=== PATIENT | male | born 1960 | race Caucasian/White ===

== ENCOUNTER 2022-03-27 11:47 | Outpatient (CLI) | payer OTHER, SELFPAY ==
--- NOTE | ~2022-03-27 | XR_ITS ---
XR thoracic spine 3V DATE: 03/27/2022 12:09 INDICATION: Back pain. Neck pain. TECHNIQUE: AP, lateral, swimmer views COMPARISON: None FINDINGS: There is moderate degenerative disc disease at C4-5, C5-6 and C6-7. No fracture or dislocation of the thoracic spine. The thoracic pedicles are intact. No bone destructi on is noted. There is mild to moderate degenerative spurring of the thoracic spine. No paraspinal soft tissue thic kening. IMPRESSION: Degenerative changes of the cervical and thoracic spine Reviewed, dictated and finalized at location B. [facility]
--- NOTE | ~2022-03-27 | XR_ITS ---
XR_CERV2-3V_CR DATE: 03/27/2022 12:09 INDICATION: Neck pain. Cervical spondylosis. TECHNIQUE: Open-mouth, odontoid, AP and lateral views COMPARISON: None FINDINGS: There is straightening of the cervical spine which may be due to muscle spasm. C1 and C2 are normally aligned and the odontoid process is intact. No fracture or dislocation or lock ed facet or prevertebral soft tissue swelling is detected. Cervical interspaces are well preserved. There is bridging osteophyte anteriorly at C4-5 and anterior spurring at C5-6. Mild anterior and more prominent posterior spurring is suggested at C6-7. IMPRESSION: Straightening of the cervical spine which may be due to muscle spasm Mild spondylosis Reviewed, dictated and finalized at Location A. Reviewed, dictated and finalized at location B. [facility] FOLLOWER IMPRESSION: Straightening of the cervical spine which may be due to muscle spas m Mild spondylosis
== END 2022-03-27 11:48 | disposition home or self-care (01) ==
LOC: ANHASCIMG 11:51
PROVIDERS: PCP Emergency Medicine; Visit Provider Emergency Medicine
DX: M47.892 Other spondylosis, cervical region (principal); M50.30 Other cervical disc degeneration, unspecified cervical region; M51.34 Other intervertebral disc degeneration, thoracic region
CPT/HCPCS: 72040; 72072

== ENCOUNTER 2022-04-28 09:55 | Emergency (ER) | payer OTHER, SELFPAY ==
--- NOTE | ~2022-04-28 | XR_ITS ---
EXAMINATION: XR chest 2V 04/28/2022 13:30 INDICATION: Chest palpitations PROCEDURE: 2 view chest COMPARISON: 10/16/2018 FINDINGS: The lungs are clear. The cardiomediastinal silhouette is within normal limits. There are no pleural effusions. There is no pneumothorax suspected. IMPRESSION: 1: NO ACUTE CARDIOPULMONARY DISEASE. Reviewed, dictated and finalized at location A. [facility]
--- NOTE | 2022-04-28 10:00 | ECG_ITS ---
Measurements Intervals [place] Rate: 109 P: 40 [place]: 173 QRS: 15 QRSD: 89 T: 65 QT: 308 QTc: 416 Interpretive Statements SINUS TACHYCARDIA NONSPECIFIC ST ABNORMALITY BORDERLINE ECG COMPARED TO ECG 10/16/2018 17:17:25 NO SIGNIFICANT CHANGES Electronically Signed On 04-28-2022 14:54:08 INTERNET ARCHITECT by Lizandro Tolliver M.D.
[2022-04-28 10:12] LABS: Basophils Absolute Auto 0.1 K/mm3 (0.0-0.1); Basophils Percent Auto 1.1 % (0.2-1.2); Eosinophils Absolute Auto 0.7 K/mm3 (0-0.3); Eosinophils Percent Auto 7.3 % (0-4.4); Hematocrit 48.4 % (42.0-52.0); Hemoglobin 16.8 g/dL (14.0-18.0); Immature Granulocyte Absolute 0.04 K/mm3 (0.00-0.031); Immature Granulocyte Percent A 0.4 % (0-0.5); Lymphocytes Percent Auto 26.2 % (18.3-44.2); Mean Corpuscular HGB Conc 34.7 g/dl (32-36); Mean Corpuscular Hemoglobin 29.2 pg (26-34); Mean Corpuscular Volume 84.2 fl (80-100); Mean Platelet Volume 8.8 fl (7.4-10.4); Monocytes Absolute Auto 0.7 K/mm3 (0.1-0.6); Neutrophils Absolute Auto 5.2 K/mm3 (1.3-6.7); Platelet Count Result 330 k/mm3 (150-375); Red Blood Count 5.75 M/mm3 (4.6-6.20); Red Cell Distribution Width 12.6 % (11.5-14.5); White Blood Count 9.2 K/mm3 (4.5-10.0)
[2022-04-28 10:23] LABS: Alanine Aminotransferase 20 U/L (6-50); Albumin Level 4.7 g/dL (3.5-5.1); Alkaline Phosphatase 86 U/L (38-126); Anion Gap 7 mmol/L (8-16); Aspartate Amino Transferase 27 U/L (17-59); Bilirubin,Total 0.7 mg/dL (0.2-1.3); Blood Urea Nitrogen 16 mg/dL (9-20); Calcium 9.2 mg/dL (8.4-10.2); Carbon Dioxide 29 mmol/L (22-30); Chloride 98 mmol/L (98-107); Estimated Glomerular Filt Rate > 60; Glucose 124 mg/dL (65-110); Potassium 3.7 mmol/L (3.4-5.0); Sodium 134 mmol/L (137-145)
[2022-04-28 10:24] VITALS: BP 111/61; PULSE 102; RESP 15; TEMP 36.8; O2SAT 100
[2022-04-28] MEDS: SODIUM CHLORIDE 0.9% IV 1,000 ML 999 ML IV CONT (13:11)
[2022-04-28 13:13] VITALS: BP 116/78; PULSE 86; RESP 16; O2SAT 99
--- NOTE | 2022-04-28 13:35 | ED.WEAKNESS ---
HPI - Weakness General Chief complaint: Weakness Stated complaint: generalized weakness, leg numbess Time Seen by Provider: 04/28/22 12:41 History of Present Illness HPI Narrative: Patient is a 62-year-old male who presents ER with weakness. Reports for the last week he has had a GI bug causing have some nausea vomiting diarrhea. He has felt weak and fatigued today. [place] like his heart was racing earlier and has had some chest discomfort on the left side for the last week as well. No history of heart disease. Does have history of anxiety. Has had poor appetite over the last week. No loss consciousness. Related Data Home Medications Medication Instructions Recorded Confirmed amlodipine 10 mg tablet mg 04/28/22 Allergies Allergy/AdvReac Type Severity Reaction Status Date / Time No Known Allergies Allergy Unknown Verified 04/28/22 13:16 Review of Systems Review of Systems: All systems reviewed & are unremarkable except as noted in HPI and below Constitutional: Constitutional: Denies chills, Reports fatigue and Denies fever(s) Cardiovascular: Cardiovascular: Reports chest pain, Reports rapid heart rate and Denies radiating jaw, neck or arm pain Respiratory: Respiratory: Denies cough, Denies dyspnea and Denies wheezing Gastrointestinal: Gastrointestinal: Denies abdominal pain, Reports diarrhea, Reports nausea and Reports vomiting PMFSH Past Medical History Medical History (Updated 04/28/22 @ 14:38 by Clifton Linda MD) Anxiety Hypertension Surgical History Surgical History (Updated 04/28/22 @ 13:40 by Clifton Linda MD) H/O inguinal hernia repair History of appendectomy Social History Social History (Updated 04/28/22 @ 13:40 by Clifton Linda MD) Smoking status: Never smoker Exam Narrative: GENERAL: Well-appearing, well-nourished, and in no acute distress. HEAD: Normocephalic, atraumatic. NECK: Supple. CHEST: Clear to auscultation. No respiratory distress. HEART: Regular rate and rhythm. Normal peripheral pulses. ABDOMEN: Soft, nontender, nondistended. EXTREMITIES: Normal range of motion. No edema. SKIN: Warm, dry, no rash. NEURO: No focal deficits. Alert and oriented x3. PSYCH: Normal mood and affect. Course Course Emergency Course: Discussed diagnosis and treatment plan with patient and his . Labs unremarkable EKG reassuring. Heart score 3. Vital Signs Vital signs: Vital Signs Temperature 98.2 F 04/28/22 10:24 Pulse Rate 102 H 04/28/22 10:24 Respiratory Rate 15 04/28/22 10:24 Blood Pressure 111/61 04/28/22 10:24 Pulse Oximetry 100 04/28/22 10:24 Oxygen Delivery Room Air 04/28/22 10:24 Temperature 98.2 F 04/28/22 10:24 Pulse Rate 90 04/28/22 15:21 Respiratory Rate 20 04/28/22 15:21 Blood Pressure 114/74 04/28/22 15:21 Pulse Oximetry 100 04/28/22 15:21 Oxygen Delivery Room Air 04/28/22 10:24 MDM - Weakness Lab Data 04/28/22 10:06 04/28/22 10:06 Labs: Lab Results 04/28/22 04/28/22 04/28/22 Range/Units 10:06 10:06 13:09 WBC 9.2 (4.5-10.0) K/mm3 RBC 5.75 (4.6-6.20) M/mm3 Hgb 16.8 (14.0-18.0) g/dL Hct 48.4 (42.0-52.0) % MCV 84.2 (80-100) fl MCH 29.2 (26-34) pg MCHC 34.7 (32-36) g/dl RDW 12.6 (11.5-14.5) % Plt Count 330 (150-375) k/mm3 MPV 8.8 (7.4-10.4) fl Immature Gran % (Auto) 0.4 (0-0.5) % Neut % (Auto) 57.0 (45.5-73.1) % Lymph % (Auto) 26.2 (18.3-44.2) % [place] % (Auto) 8.0 (2.6-8.5) % Eos % (Auto) 7.3 H (0-4.4) % Baso % (Auto) 1.1 (0.2-1.2) % Lymph # (Auto) 2.40 (0.9-3.2) K/mm3 [place] # (Auto) 0.7 H (0.1-0.6) K/mm3 Eos # (Auto) 0.7 H (0-0.3) K/mm3 Baso # (Auto) 0.1 (0.0-0.1) K/mm3 Abs Immat Gran (auto) 0.04 H (0.00-0.031) K/mm3 Absolute Neuts (auto) 5.2 (1.3-6.7) K/mm3 Absolute Nucleated RBC 0.0 (0.0-0.012) K/mm3 Nucleated RBC % 0.0 (0.0-0.2) % Indraiu
[2022-04-28 13:39] LABS: Troponin I < 0.012 ng/mL (0.000-0.034)
[2022-04-28 14:39] VITALS: BP 114/75; PULSE 80; RESP 18; O2SAT 98
[2022-04-28 15:21] VITALS: BP 114/74; PULSE 90; RESP 20; O2SAT 100
== END 2022-04-28 15:24 | disposition home or self-care (01) ==
PROVIDERS: Emergency Provider Emergency Medicine; PCP Emergency Medicine
DX: R00.2 Palpitations (principal); I10 Essential (primary) hypertension; R00.0 Tachycardia, unspecified; R94.31 Abnormal electrocardiogram [ECG] [EKG]
CPT/HCPCS: 36415; 71046; 80053; 84484; 85025; 93005; 96360; 99284; J7030

== ENCOUNTER 2024-04-14 01:59 | Day surgery (SDC) | payer OTHER, SELFPAY ==
[2024-04-01 14:22] VITALS: BMI 31.4
--- NOTE | 2024-04-01 14:32 | SUR.PREOP ---
Report to the Outpatient Waiting Room, entrance under the green pavilion located off [facility], at time 10:30a.m. on date 04/14/2024. Planned Procedure Time: 12:30p.m.? Time changes happen often and if your time is changed the preop area will call you the afternoon before. - You and your visitor will be asked to self-screen and do not enter if you have any COVID symptoms. Please call surgeon if you need to reschedule. - A mask is optional within the hospital at this time. Patients may have clear liquids (water, carbonated beverages, clear teas, apple juice) until 3 hours prior to surgery with a maximum of 20 ounces. - No food from midnight until time of surgery and no smoking. This includes no chewing gum, candy or mints. - Infants may have breast milk until 4 hours before surgery, infant formula 6 hours prior to surgery. - Children will be allowed to drink immediately following surgery.? If applicable, please bring a bottle or sippy cup to assist with drinking. Juice, water, soda, and popsicles are readily available.? For infants on formula, please bring formula the day of surgery.? Pacifiers are allowed. Take only the following medications with a SIP of water on the morning of surgery: amlodipine DO NOT STOP ANY OF YOUR OTHER PRESCRIPTION MEDICATIONS PRIOR TO SURGERY EXCEPT THE FOLLOWING Medications to discontinue per physician N/A Date to take last dose N/A Please no make-up, nail citizen of [place], hairspray, perfume, deodorant, or body powder the day of surgery.? No jewelry (including any body piercings) or valuables the day of surgery, leave them at home.? Please take a shower or bath the night before, or the morning of, surgery with an antibacterial soap.? Wear comfortable, loose fitting clothing.? Children are encouraged to wear pajamas. - Jewelry must be removed prior to entering the operating room.? Rings and piercings that are not removed may be cut off. - The hospital will not accept responsibility for valuables.? - Please leave all valuables, including medications, at home the day of surgery. If you are going home after surgery, a licensed boat driver must drive you home.? - NO public transportation without another adult if you receive anesthesia. - We recommend that an adult stay with you for 24 hours following discharge. - We also recommend that you do not drive, make important decision, drink alcoholic beverages, or take any drugs that were not prescribed by your health care provider for at least 24 hours after your discharge time. For Pediatric surgeries, we recommend two adults accompany the child home. Follow any additional instructions given to you from your surgeon. Telephone instructions given to Dk De Jesus and asked if any additional questions and then verbalized understanding. Patient advised to call surgeon office or pre surgery nurse liaison [phone] if any additional questions.
--- OUTSIDE RECORDS SUMMARY | 2024-04-14 02:02 | XMS_ITS | Referral Summary ---
Author Organization [facility] [place] [address] Address [address] [place] [id number] Care Team Providers Care Senior Engineering Team Leader Name Role Phone Vicente Zhang MD Primary Care Provider [phone] Allergies No known active allergies Medications irbesartan (AVAPRO) 300 mg tablet Take 1 tablet (300 mg total) by mouth nightly Active irbesartan-hydr oCHLOROthiazide (AVALIDE) 300-12.5 mg per tablet Take 1 tablet by mouth daily 10/26/2020 Active Active Problems Problem Noted Date Diagnosed Date Blood in urine 02/24/2014 Essential hypertension 12/12/2011 Gastroesophageal reflux disease 12/12/2011 Generalized anxiety disorder 12/12/2011 Social History Tobacco Use Types Packs/Day Years Used Date Smoking Tobacco: Never Personal Safety Answer Date Recorded Getting School Help Needed Not on file 05/02 Sex and Gender Information Value Date Recorded Sex Assigned at Not on file 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 Gender Identity Not on file Sexual Orientation Not on file Last Filed Vital Signs Vital Sign Reading Time Taken Comments Blood Pressure 116/68 10/01/2023 6:41 PM CDT Pulse 81 10/01/2023 6:41 PM CDT Temperature 36.8 ??C (98.3 ??F) 10/01/2023 6:41 PM CD T Respiratory Rate 20 10/01/2023 6:41 PM CDT Oxygen Saturation 98% 10/01/2023 6:41 PM CDT Inhaled Oxygen Concentration - - Weight 102.1 kg (225 lb) 10/01/2023 6:41 PM CDT Height 185.4 cm (6' 1 ) 10/01/2023 6:41 PM CDT Body Mass Index 29.69 10/01/2023 6:41 PM CDT Plan of Treatment Not on file Insurance [facility] CMR Care Teams Senior Engineering Team Leader Relationship Specialty Start Date End Date Vicente Zhang MD PCP - General Family Medicine 01/03/21
--- OUTSIDE RECORDS SUMMARY | 2024-04-14 02:02 | XMS_ITS | Continuity of Care Document ---
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 Role Phone Vicente Zhang MD Unavailable Unavailable Allergies, Adverse Reactions, Alerts Substance Reaction Status Criticality No Known Allergies Active No Inform ation Medications Medication Instructions Dosage Effective Dates (start - stop) Status Comments Norvasc 10 mg tablet take 1 tablet by oral route every day 10 MG - Active irbesartan 300 mg-hydrochlorothi azide 12.5 mg tablet take 1 tablet by oral route every day 1.00 tablet - Active sildenafil 50 mg tablet take 1 tablet by oral route every day as directe as needed 50 MG - Active take one orally about one hour before activity ,max 1/24 hours Procedures Procedure Date OFFICE/OUTPATIENT VISIT, EST PREV VISIT, EST, AGE 40-64 OFFICE/OUTPATIENT VISIT, EST OFFICE/OUTPATIENT VISIT, EST OFFICE/OUTPATIENT VISIT, EST OFFICE/OUTPATIENT VISIT, EST OFFICE/OUTPATIENT VISIT, EST PREV VISIT, EST, AGE 40-64 OFFICE/OUTPATIENT VISIT, EST OFFICE/OUTPATIENT VISIT, EST OFFICE/OUTPATIENT VISIT, EST PREV VISIT, EST, AGE 40-64 OFFICE/OUTPATIENT VISIT, EST OFFICE/OUTPATIENT VISIT, EST OFFICE/OUTPATIENT VISIT, EST PREV VISIT, EST, AGE 40-64 OFFICE/OUTPATIENT VISIT, EST PREV VISIT, EST, AGE 40-64 OFFICE/OUTPATIENT VISIT, EST PREV VISIT, EST, AGE 40-64 OFFICE/OUTPATIENT VISIT, EST PREV VISIT, EST, AGE 40-64 OFFICE/OUTPATIENT VISIT, EST OFFICE/OUTPATIENT VISIT, EST OFFICE/OUTPATIENT VISIT, EST PREV VISIT, EST, AGE 40-64 OFFICE/OUTPATIENT VISIT, EST Advance Directives Directive Yes / No Effective Date File Name No Information Encounters Encounter Description Practice Location Reason(s) For Visit Diagnoses Date Provider Providers Copied on Encounter OFFICE/OUTPA TIENT VISIT, EST [facility], [address] [place], [address], tel:[phone] [facility] HTN (chief complaint)glu cose1 (chief complaint)HLP (chief complaint)ED (chief complaint)ski n (chief complaint) Essential (primary) hypertensionMixe d hyperlipidemiaHy perglycemiaFamil y history of ischemic cardiac diseaseEpidermal cystMale erectile dysfunction, unspecified 4 Vicente Lindsay [address] [facility] [place], [address] , [place]. tel:[phone] PREV VISIT, EST, AGE 40-64 [facility], [address] [place], [address], [place] tel:[phone] [facility] physical (chief complaint) Encounter for general adult medical exam w abnormal findingsEssentia l (primary) hypertensionMixe d hyperlipidemiaHy perglycemiaAcute bronchitis 4 Vicente Lindsay [address] [place], [address] , [place]. tel:[phone] OFFICE/OUTPA TIENT VISIT, EST [facility], [address] [place], [address], [place] tel:[phone] [facility] HTN (chief complaint)COV ID1 (chief complaint)anx iety1 (chief complaint) Essential (primary) hypertensionGene ralized Anxiety DisorderViral infectionMale erectile dysfunction, unspecified 3 Vicente Zhang. [address], [place], [place], [address] , [place]. tel:[phone] OFFICE/OUTPA TIENT VISIT, EST [facility], [address], [place], [place], [address], [place] tel:[phone] [facility] back pain1 (chief complaint) Muscle spasm of backOther spondylosis, cervical region 3 Vicente Zhang. [address], [place], [place], [address] , [place]. tel:[phone] OFFICE/OUTPA TIENT VISIT, [facility], [address], [place], [place], [address], [place] tel:[phone] [facility] back pain1 (chief complaint) Muscle spasm of back 3 Vicente Zhang. [address], [place], [place], [address] , [place]. tel:[phone] OFFICE/OUTPA TIENT VISIT, [facility], [address], [place], [place], [address], [place] tel:[phone] [facility] HTN (chief complaint)HLP (chief complaint)glu cose (chief complaint)anx iety1 (chief complaint)ED (chief complaint) Essential (primary) hypertensionHype rglycemiaMixed hyperlipidemiaMa le erectile dysfunction, unspecifiedGener alized Anxiety Disorder 2 Vicente Zhang. [address], [place], [place], [address] , [place]. tel:[phone] PREV VISIT, EST, AGE 40-64 [facility], [address], [place], [place], [address], [place] tel:[phone] [facility] physical (chief complaint) Encounter for general adult medical exam w abnormal findingsEssentia l (primary) hypertension 2 Vicente Zhang. [address], [place], [place], [address] , [place]. tel:[phone] OFFICE/OUTPA TIENT VISIT, EST [facility], [address], [place], [place], [address], [place] tel:[phone] [facility] HTN (chief complaint)glu cose1 (chief complaint)col on1 (chief complaint)CAD (chief complaint) Essential (primary) hypertensionHype rglycemiaFamily history of ischemic cardiac diseaseEncounter for screening for malignant neoplasm of colonHyperlipide giovanny 1 Vicente Vicente. [address], [place], [place], [address] , [place]. tel:[phone] OFFICE/OUTPA TIENT VISIT, [facility], [address], [place], [place], [address], [place] tel:[phone] [facility] HTN (chief complaint)glu cose1 (chief complaint)col on1 (chief complaint) HyperlipidemiaEs sential (primary) hypertensionHype rglycemiaEncount er for screening for malignant neoplasm of colon 0 Vicente Vicente. [address], [place], [place], [address] , [place]. tel:[phone] PREV VISIT, EST, AGE 40-64 [facility], [address], [place], [place], [address], [place] tel:[phone] [facility] Physical (chief complaint) Encounter for general adult medical exam w abnormal findingsHyperlip idemiaTachycardi aEssential (primary) hypertension 0 Vicente Vicente. [address], [place], [place], [address] , [place]. tel:[phone] OFFICE/OUTPA TIENT VISIT, EST [facility], [address], [place], [place], [address], [place] tel:[phone] [facility] HTN (chief complaint)HLP (chief complaint)nicki kocytosis1 (chief complaint)tac hycardia1 (chief complaint) LeukocytosisEsse ntial (primary) hypertensionHype rlipidemiaTachyc ardia [address] Vicente [address], [place], [place], [address] , [place]. tel:[phone] Referring Provider: [address], [place], [place], [address]. tel:[phone] OFFICE/OUTPA TIENT VISIT, EST [facility], [address] [place], [address], [place] tel:[phone] [facility] HTN (chief complaint)diz ziness1 (chief complaint)tac hycardia (chief complaint)glu cose (chief complaint) Essential (primary) hypertensionDizz inessHyperglycem iaTachycardiaLeu kocytosisEdema 9 Vicente [address], [place], [place], [address] , [place]. [phone] Referring Provider: Favian Sher [address] [facility] [address], [place], [place], [address]. tel:[phone] PREV VISIT, EST, AGE 40-64 [facility], [facility] [address] [place], [address], [place] tel:[phone] [facility] Physical (chief complaint) Encounter for general adult medical exam w abnormal findingsEssentia l (primary) hypertension 0 [address] Vic[address], [place], [address] , [place]. [phone] Referring Provider: Favian Sher [address], [place], [place], [address]. tel:[phone] PREV VISIT, EST, AGE 40-64 [facility], [address] [place], [address], [place] tel:[phone] [facility] PHysical (chief complaint) Encounter for general adult medical exam w abnormal findingsEssentia l (primary) hypertensionEnco unter for screening for other viral diseases 7 Zhang Vicente. [address], [place], [place], [address] , [place]. [phone] Referring Provider: Favian [address], [place], [place], [address]. tel:[phone] PREV VISIT, EST, AGE 40-64 [facility], [address], [place], [address], [place] tel:[phone] [facility] PHysical (chief complaint) Encounter for general adult medical exam w abnormal findingsEssentia l (primary) hypertension 6 Vicente Zhang. [address], [place], [place], [address] , [place]. [phone] Referring Provider: Vicente Zhang, [address], [place], [place], [address]. tel:[phone] PREV VISIT, EST, AGE 40-64 [facility], [address], [place], [place], [address], [place] tel:[phone] [facility] PHysical (chief complaint) Encounter for general adult medical exam w/ abnormal findingEssential (primary) hypertensionGERD without esophagitis 5 Vicente Zhang. [address], [place], [address] , [place]. [phone] Referring Provider: Favian Sher [address], [place], [address]. tel:[phone] OFFICE/OUTPA TIENT VISIT, EST [facility], [address], [place], [address], [place] tel:[phone] [facility] GERd (chief complaint)HTN (chief complaint)pal pitaion (chief complaint)anx iety (chief complaint) Hypertension, UnspecifiedGERDH EMATURIA NOSSpecial screening for malignant neoplasms, colon 4 Vicente Zhang. [address], [place], [place], [address] , [place]. [phone] Referring Provider: Favian Sher [address], [place], [address]. tel:[phone] [facility], [address], [place], [address], [place] tel:[phone] [facility] HEMATURIA NOS 4 Vicente Zhang. [address], [place], [place], [address] , [place]. tel:[phone] Referring Provider: Vicente Zhang, [address], [place], [place], [address]. tel:[phone] OFFICE/OUTPA TIENT VISIT, EST [facility], [address], [place], [address], [place] tel:[phone] [facility] anxiety (chief complaint)pal pitation (chief complaint)EFE D (chief complaint) Dietary surveillance and counselingPalpit ationsGERDGenera lized anxiety disorderHyperten champ, Unspecified 4 Vicente Zhang. [address], [place], [address] , [place]. tel:[phone] Referring Provider: Vicente Zhang, [address], [place], [place], [address]. tel:[phone] PREV VISIT, EST, AGE 40-64 [facility], [address], [place], [address], [place] tel:[phone] [facility] Physical (chief complaint) Routine Medical ExamDietary surveillance and counselingRoutin e Medical Exam 3 Vicetne Zhang. [address], [place], [place], [address] , [place]. tel:[phone] Referring Provider: Vicente Zhang, [address], [place], [place], [address]. tel:[phone] OFFICE/OUTPA TIENT VISIT, EST [facility], [address], [place], [address], [place] tel:[phone] [facility] hypertension (follow up) (chief complaint)anx iety (chief complaint)EFE D (chief complaint) Dietary surveillance and counselingGERDHy pertension, UnspecifiedGener alized anxiety disorder 2 Vicente Zhang. [address], [place], [place], [address] , [place]. tel:[phone] Family History Family Member Type Diagnosis Age At Onset Brother Problem (finding) Hypertension Father Problem (finding) Hypertension Brother Problem (finding) Coronary artery disease Mother Problem (finding) Hypertension Payers Payer name Insurance type Covered constitution party ID Authoriza tion(s) No Information Social History Type Description Quantity Date Captured Comments Alcohol Use Details Caffeine Use Details Unknown Tobacco Use Status Never smoked tobacco 2023 Smoking Status Never smoker Sex Male Vital Signs Date / Time: Height Weight BMI Pulse Rate Blood Pressure Temperature Respiratory Rate Body Surface Area Head Circumference BMI percentile Pulse Ox Inhaled Ox 3:35 PM 74.00 in 244.20 lbs 31.3 5 kg/m eter (2) 60 /min 110/74 mm[Hg] 97.5 F 16 /min Chief Complaint And Reason For Visit From encounter dated '02/24/2024 15:34'. HTN (chief complaint). Description: Pt has HTN pt takes irbesartan/hctz and norvasc and his bp is ok Pt denies any chest pain or headache glucose1 (chief complaint). Description: Pt has mild high glucose Pt denies any polyuria, polydipsia HLP (chief complaint). Description: Pt has HLP pt also gained weight .Pt has not been diet and exercising ED (chief complaint). Description: Pt c/o ED Pt denies testicular pain or atrophy or nodule. skin (chief complaint). Description: Pt notices a growing skin cystic lesion on back of his neck for several months pt denies any pain or bleeding Plan Of Treatment Date Type Action Status Goal Special diet education compl eted Goal Special diet education compl eted Goal Special diet education compl eted Referral Referred To: Krzysztof [place] [address] [place] [address], [phone] Ordered: Referrals: Krzysztof [place]. Evaluate and treat ordered Referral Referred To: Sujit Estevez [address] [place], [phone] Ordered: Referrals: Sujit Estevez. Evaluate and treat ordered Referral Ordered: Physical Therapy (related to Muscle spasm of back) ordered Referral Ordered: CERVICAL SPINE XRAY 7 VIEWS ordered Referral Referred To: Physical Therapy Ordered: Referrals: Physical Therapy. Evaluate and treat ordered Referral Ordered: Sujit Estevez -[facility] : Internal Medicine : Cardiovascular Disease (related to Bradycardia) ordered Referral Referred To: Sujit Estevez [address] [place], [place] [phone] Ordered: Referrals: [facility] : Internal Medicine : Cardiovascular Disease. Sujit Estevez. Evaluate and treat ordered Referral Ordered: CARDIOVASCULAR STRESS TEST ordered Referral Ordered: COLONOSCOPY AND BIOPSY ordered History Of Present Illness Encounter Date Complaint History Of Prese nt Illness HLP Pt has HLP pt al so gained weight .Pt has not been diet and exercising ED Pt c/o ED Pt den ies testicular pain or atrophy or nodule. skin Pt notices a edward wing skin cystic lesion on back of his neck for several months pt denies any pain or bleeding glucose1 Pt has mild high glucose Pt denies any polyuria, polydipsia HTN Pt has HTN pt ta kes irbesartan/hctz and norvasc and his bp is ok Pt denies any chest pain or headache physical Pt needs annual physical pt has HTN Pt takes norvasc and irbesartan/hctz and his bp is ok Pt denies any chest pain or headache Pt c/o productive cough x 2 weeks Pt notices small amount of green phlegm .Pt denies any sob Pt denies any fever, chest pain, sore throat or sinus symptoms Pt denies any GI symptoms. he is uptodate with COVID, flu vaccine .Pt denies any other complaints HTN Pt has HTn< Pt t akes irbesartan/hctz and norvasc and his bp is around 130/80. Pt needs refill COVID1 Pt contracted [place] VID last week and he is vaccinated and boosted .Pt has very mild symptoms he did receive paxlovid. Pt currently feels fine anxiety1 Pt has history o f mild anxiety Pt states that he is doing better in terms of his anxiety and he is off xanax completely .He denies any depression or any suicidal or homicidal thought. Pt denies any crying spells . back pain1 Pt c/o acute ons et of pain around upper back and inferior to neck area around the center of his back for 1.5 . Pt denies any injury .Pt denies any radiculopathy. Pt feels some muscle tightness around the area along the upper T spine. Pt denies any stiff neck or any signs of sore throat or any infection. Pt went to chiropractor for several treatment which seems to make the pain worse .Pt states that the pain is sharp and dull and seems worse with movement. Pt denies any rash. Pt denies any burning feeling Pt c/o 4/10 pain at times. Pt denies any upper extremity weakness or paresthesia. Pt states that he also feels pain while lying down at night Pt states tat flexeril did not help very much back pain1 Pt c/o acute ons et of pain around upper back and inferior to neck area around the center of his back for several weeks. Pt denies any injury .Pt denies any radiculopathy. Pt feels some muscle tightness around the area along the upper T spine. Pt denies any stiff neck or any signs of sore throat or any infection. Pt went to chiropractor for several treatment which seems to make the pain worse .Pt states that the pain is sharp and dull and seems worse with movement. Pt denies any rash. Pt has not tried any medication yet. Pt c/o 4/10 pain at times. Pt denies any upper extremity weakness or paresthesia. HTN Pt has HTn Pt ta kes norvasc and irbesartan/hctz and his bp at home is around 130/70 pt denies any chest pain or headache. his bp is borderline high today. Pt has white coat syndrome HLP Pt has mild HLP. Pt has been trying to eat better now glucose Pt has borderlin e high glucose .Pt denies any polyuria, polydipsia. anxiety1 Pt has chronic a nxiety Pt denies any depression or any suicidal or homicidal thought Pt denies any crying spells. Pt states that work causes a lot of anxiety. He took 0.25 mg xanax which really helped his anxiety. Pt only has anxiety sometimes. ED Pt has ED Pt den ies any testicular pain, atrophy or nodule Pt has good libido physical Pt needs annual physical. Pt has HTN. Pt takes irbesartan/hctz but his bp has been elevated lately to around 160/95 at home Pt denies any chest pain or headache Pt overall feels well. Pt never did colonguard .Pt denies any Gi symptoms CAD Pt has family hi story of CAD Pt denies any chest pain Pt has history of HLP but he has been diet and exercising colon1 Pt had benign co lonoscopy 2014 Pt denies any Gi issue or bleeding or weight loss Pt has not done colonguard yet. glucose Pt has borderlin e high glucose pt denies any polyuria polydipsia . HTN Pt has HTN Pt ta kes irbesartan/hctz and his bp is around 120/70. Pt feels well Pt denies any chest pain or headache HTN Pt has HTn, Pt t akes irbesartan/hctz and his bp is around 130/70 at home Pt denies any chest pain or headache. colon Pt had benign co lonoscopy 2014. Pt denies any GI issue or bleeding . glucose Pt has mildly hi gh glucose .Pt denies any polyuria, polydipsia. Physical Pt needs annual physical. Pt has HTN ,Pt takes irbesartan/hctz and his BP is around 130/70 ,pt denies any chest pain or headache or palpitation. Pt never followed up with cardiology. Pt has mild HLP pt denies any fatigue or snoring or any sleep issue. Pt denies any other complaints tachycardia1 Pt recently went to ER due to dizziness and tachycardia Pt denies any chest pain. Pt denies any palpitation. Pt denies any dizziness his brother had CAD at age of 55. leukocytosis1 Pt had leukocyto sis. Pt has mild high HCT. Leukocytosis resolved. HLP Pt has HLP. Pt i s not on any diet. HTN Pt has HTn. Pt t akes irbesartan. His bP is 140/90 at home but it is higher in office Pt denies any chest pain. Pt denies any further dizziness Pt denies any palpitation Pt never went to see cardiology Pt is noncompliant HTN Pt has HTN pt ta kes lotrel for long time Pt states that his BP has been high Pt denies any chest pain or headache glucose Patient had mild ly elevated glucose and also leukocytosis while in ER. Patient denies any polyuria polydipsia. Patient denies any fever. tachycardia Pt had mild tach ycardia in ER recently. Pt denies any chest pain or palpitation Pt did have some dizziness feeling without syncope. Pt denies any vertigo dizziness1 pt has been feel ing lightheadedness for 4 weeks Pt feels above intermittently but seems worse during last week Pt denies any chest pain or palpitation Pt feels lightheadedness sometimes when he stand up and sometimes when he is sitting without standing up Pt was watching TV last week and felt very lightheadedness and is about the pass out and he had to call ambulance. He had mild tachycardia in er. Physical Pt needs annual physical. Pt has HTn. Pt denies any chest pain. His BP is stable. Pt takes lotrel and he denies any chest pain or headache. pt denies any other complaints. Pt denies any GI issue. pt has not done lab yet. PHysical Pt needs annual physical. pt has HTn. Pt takes lotrel. his BP is stable. Pt denies any chest pain or headache Pt did not do any lab last year. He denies anything new. PHysical Pt needs annual physical. Pt has HTN. Pt takes lotrel and doing ok. Pt denies any chest pain or headache Pt never did lab work. Pt feels well. Pt denies any abd pain or GERD. Pt denies any other complaints PHysical Pt needs annual physical. Pt has HTN and his BP is ok. Pt had negative EGD and colonoscopy recently. Pt denies any GERD symptoms. Pt denies any other copmlaints Instructions Date Instruction Additional Infor mation Weight management Related to Nicki kocytosis Increase physical activity Relat ed to Leukocytosis Special diet education Related t o Body mass index (BMI) 50.0-59.9, adult Special diet education Related t o Body mass index (BMI) 31.0-31.9, adult Increase activity. Related to Es sential (primary) hypertension Special diet education Related t o Body mass index (BMI) 32.0-32.9, adult Increase physical activity Relat ed to Encounter for general adult medical exam w abnormal findings Weight management Related to Enc ounter for general adult medical exam w abnormal findings Prescribed Activity and Exercise Education Related to Dietary Surveillance and Counseling Prescribed Diet Educ ation/Lifestyle Education Regarding Diet Related to Dietary Surveillance and Counseling Increase physical activity Relat ed to Encounter for general adult medical exam w abnormal findings Weight management Related to Enc ounter for general adult medical exam w abnormal findings Prescribed Activity and Exercise Education Related to Dietary Surveillance and Counseling Prescribed Diet Educ ation/Lifestyle Education Regarding Diet Related to Dietary Surveillance and Counseling Prescribed Diet Educ ation/Lifestyle Education Regarding Diet Related to Dietary Surveillance and Counseling Prescribed Activity and Exercise Education Related to Dietary Surveillance and Counseling Physical activity counseling Rel ated to Dietary surveillance counseling Decrease caloric intake Related to Dietary surveillance counseling Dietary counseling Related to Di etary surveillance counseling Decrease caloric intake Related to Dietary surveillance counseling Dietary counseling Related to Di etary surveillance counseling Dietary counseling Related to Di etary surveillance counseling Decrease caloric intake Related to Dietary surveillance counseling Dietary counseling provided Rela savannah to Hypertension, Unspecified Activity counseling provided Rel ated to Hypertension, Unspecified Decrease caloric intake Related to Dietary surveillance counseling Dietary counseling Related to Di etary surveillance counseling Assessments Type Assessment Date assessment Essential (primary) hypertension assessment Mixed hyperlipidemia assessment Hyperglycemia assessment Family history of ischemic cardi ac disease assessment Epidermal cyst assessment Male erectile dysfunction, unspe cified Mental Status Date Cognitive Assessment Orientation - [place] ed to time, place, person, situation.
--- OUTSIDE RECORDS SUMMARY | 2024-04-14 02:02 | XMS_ITS | Clinical Summary ---
Author Organization [facility] [place] [facility] [address] Address [address] [place] [id number] Care Team Providers Care Barge Pilot Name Role Phone Vicente Zhang MD Primary Care Provider [phone] Allergies No known active allergies Medications irbesartan (AVAPRO) 300 mg tablet Take 1 tablet (300 mg total) by mouth nightly Active irbesartan-hydr oCHLOROthiazide (AVALIDE) 300-12.5 mg per tablet Take 1 tablet by mouth daily 10/26/2020 Active Active Problems Problem Noted Date Diagnosed Date Blood in urine 02/24/2014 Essential hypertension 12/12/2011 Gastroesophageal reflux disease 12/12/2011 Generalized anxiety disorder 12/12/2011 Surgical History Surgery Date Site/Laterality Comments APPENDECTOMY HERNIA REPAIR Medical History Medical History Date Comments Hypertension Social History Tobacco Use Types Packs/Day Years Used Date Smoking Tobacco: Never Personal Safety Answer Date Recorded Getting School Help Needed Not on file 05/02 Sex and Gender Information Value Date Recorded Sex Assigned at Not on file 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 Gender Identity Not on file Sexual Orientation Not on file Obstetrics History Last Filed Vital Signs Vital Sign Reading [...] 10/01/2023 6:41 PM CDT Plan of Treatment Health Maintenance Due Date Last Done Comments Colon Cancer Screening-Colonoscopy 1962 Depression Screening 1962 Hepatitis C Screening 1962 Prostate Cancer Screening-PSA 1962 DTaP/Tdap/Td Vaccine (1 - Tdap) 1973 Hepatitis B Screening 02/10/1980 Regular Well Visit/Exam 18-64 02/10/1980 Zoster Vaccine (1 of 2) 02/10/2012 Covid-19 Vaccine ( - 2023-2 5 season) 2023 06/01/2020, 05/11/2020 Influenza Vaccine (#1) 2023 Pneumococcal vaccine <65 Aged Out No longer eligible based on patient's age to complete this [place] [place] [id number] [facility] Care Teams Barge Pilot Relationship Specialty Start Date End Date Vicente Zhang MD PCP - General Family Medicine 01/03/21
--- NOTE | 2024-04-14 10:16 | WPDHPUPDATE1 ---
History and Physical Update Update Date/Time: 04/14/24 10:16 History and Physical has been reviewed, including an updated exam of the patient. There are NO changes in the patient's condition. Risks, benefits, and alternatives have been discussed and questions answered. Patient agrees to proceed with procedure.
[2024-04-14 11:00] VITALS: BP 146/75; PULSE 80; RESP 14; TEMP 36.6; O2SAT 100
[2024-04-14] MEDS: LACTATED RINGERS 1,000 ML 30 ML IV CONT (11:00)
--- NOTE | 2024-04-14 11:47 | P.PNAN_ITS ---
Anes - Initial Pre Proc Eval Procedure: Operation Date: 04/14/24 12:30 Proposed Procedures p Excision Skin Cyst of Posterior Neck - Krzysztof Birmingham MD Date/Time: 04/14/24 11:47 Surgeon: Krzysztof Birmingham MD Pre Op Diagnosis: cyst posterior neck Pre Op Diagnosis: skin cyst posterior neck Patient Data Age: 64 Gender: M Height: 1.85 m Weight: 110.3 kg Last Vital Signs Temp 36.6 C 04/14/24 11:00 Pulse 80 04/14/24 11:00 Resp 14 04/14/24 11:00 BP 146/75 H 04/14/24 11:00 Pulse Ox 100 04/14/24 11:00 O2 Del Method Room Air 04/14/24 11:00 Allergies Allergy/AdvReac Type Severity Reaction Status Date / Time No Known Allergies Allergy Unknown Verified 04/14/24 11:16 Home Medications ?Medication ?Instructions ?Recorded ?Confirmed ?Type amlodipine 10 mg tablet 10 mg PO DAILY 04/28/22 04/01/24 History irbesartan 300 1 tablet PO DAILY 06/25/23 04/01/24 History mg-hydrochlorothiazide 12.5 mg tablet Patient hx anesthesia problems: none Family hx anesthesia problems: none Results Review: All pre-operative results and documents have been reviewed as part of the pre- operative evaluation. [facility] Past Medical History Medical History Anxiety Hypertension Surgical History Surgical History History of appendectomy H/O inguinal hernia repair Family History Family History Mother Hypertension Social History Social History Smoking status: Never smoker Alcohol intake: current Drinks per week: 1 Alcohol use details: Yearly maybe Substance use: never Current Housing: Decline to Answer Concerned About Future Housing: Decline to Answer Difficulty Paying Gas/Electric Bills: Decline to Answer Difficulty Paying for Meds: Decline to Answer Currently Unemployed: Decline to Answer Education: Decline to Answer Difficulty w/ Childcare or Family Care: Decline to Answer Living arrangements: with family Spiritual care concerns: No Anes - Eval Final PreProcedure Day of Procedure 04/14/24 11:47 Patient weight: obese Heart: regular rate and rhythm Lungs: normal air movement Airway: Mallampati scale class II Neurological: alert and oriented Last oral intake: >/= 8 hours ASA classification: II Emergent: no Anesthetic plan: proceed Anesthesia type and monitoring: general GIVS and standard monitoring Results Review: All pre-operative results and documents have been reviewed as part of the pre- operative evaluation. Informed Consent: The patient's anesthetic plan and its attendant risks and benefits were discussed with the patient/family/POA. Questions were solicited and answers provided to the satisfaction of the patient/family/POA.
[2024-04-14] MEDS: ceFAZolin 2 GM/D5W 50 ML 2 GM/50 ML BAG IVPB (11:56)
[2024-04-14] MEDS: BUPIVACAINE/EPINEPHRINE 0.5% 50 ML VIAL 30 ML INFILTRATE (12:15)
[2024-04-14 12:51] VITALS: BP 122/66; PULSE 96; RESP 16
--- NOTE | 2024-04-14 12:56 | P.OP_ITS ---
Procedure Note - Detailed Date of Procedure 04/14/24 Pre-op Diagnosis skin cyst posterior neck Post-op Diagnosis Same Procedure Performed Excision 3 cm skin cyst posterior neck with 2 mm margins, 3.4 cm excision. 10 cm layered closure. 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 He is taken to surgery now for excision Findings Inclusion cyst of the posterior neck Description of Procedure Patient was seen in the preoperative holding area. The area of the cyst was marked on the skin. Scalp air bordering on the cyst was removed with clippers. Patient was then taken to the operating room. He was placed in a prone position and anesthesia was introduced. Prep and drape was carried out. The proposed elliptical incision was marked on the neck. Local anesthetic was infiltrated into the skin and subcutaneous in the area of the anticipated incision and all around the cyst. Incision was made and dissection was carried out around the cyst. One small entry into the cyst was made but any contents were quickly removed and the entire cyst was included in the resection. Dissection was carried out so that a 2 mm margin of cyst was excised with the overlying skin. The cyst was measured after was removed and was 3 cm in its longest dimension. The resulting wound was measured and was 10 cm. Once the cyst was completely excised, we exposed and achieved good hemostasis of the posterior neck wound. The wound was then closed with a deep layer of interrupted 3-0 Vicryl suture. A more superficial layer of 4-0 Vicryl subcutaneous suture were placed. Finally interrupted subcuticular 4-0 Vicryl skin stitches were placed. The wound was dressed with Exofin surgical adhesive. Patient was awakened and taken to recovery in good condition. Sponge and needle counts were correct x2. Estimated Blood Loss -20 Drains No Packing No Pathology Yes (Skin cyst of the neck) Complications None Condition Stable Disposition PACU [facility] Billing Surgery - Charge Forward: Surgery Billing (Excision 3 cm skin cyst posterior neck with 2 mm margins, 3.4 cm excision. 10 cm layered closure.)
[2024-04-14 13:20] VITALS: BP 125/80; PULSE 86; RESP 20
[2024-04-14 13:50] VITALS: BP 133/80; PULSE 80; RESP 20
== END 2024-04-14 13:55 | disposition home or self-care (01) ==
PROVIDERS: PCP Emergency Medicine; Visit Provider Surgery
PROC: (CPT 11424; principal; 2024-04-14 12:30)
DX: L72.0 Epidermal cyst (principal); E66.9 Obesity, unspecified; Z68.32 Body mass index [BMI] 32.0-32.9, adult
CPT/HCPCS: 11424; 12044; 88305; J0690; J2003; J2250; J2405; J2704; J3010; J7120